=== PATIENT | male | born 1980 | race Caucasian/White ===

== ENCOUNTER 2023-05-23 02:52 | Inpatient (IN) | payer MEDICAID ==
[~2023-05-23] VITALS: Ht 180.3 cm; Wt 100.3 kg
[2023-05-23 03:00] VITALS: BP_SYST 169; PULSE 106; RESP 19; TEMP 97.9; O2SAT 95
[2023-05-23] MEDS ORDERED: FUROSEMIDE 40 MG/4 ML VIAL IVP ONE (03:15)
[2023-05-23 03:29] LABS: BASOPHILS # (AUTO) 0.1 K/uL (0.0-0.2); BASOPHILS % (AUTO) 0.7 % (0.0-2.0); EOSINOPHILS # (AUTO) 0.2 K/uL (0.0-0.4); HEMATOCRIT 36.4 % (36-54); LYMPHOCYTES % (AUTO) 26.6 % (20.5-51.5); MEAN CORPUSCULAR HEMOGLOBIN 23 pg (27-31); MEAN CORPUSCULAR HGB CONC 30 % (32-36); MEAN CORPUSCULAR VOLUME 75 fL (79.0-98.0); MONOCYTES # (AUTO) 0.7 K/uL (0.0-1.0); MONOCYTES % (AUTO) 5.8 % (1.7-9.3); NEUTROPHILS # (AUTO) 7.3 K/uL (1.8-7.7); NEUTROPHILS % (AUTO) 64.9 % (40.0-70.0); PLATELET COUNT (AUTO) 321 K/uL (130-430); RED BLOOD CELL COUNT(AUTO) 4.87 MIL/uL (4.2-6.2); RED CELL DISTRIBUTION WIDTH 17.7 % (9.0-15.0); WHITE BLOOD COUNT (AUTO) 11.3 K/uL (4.8-10.8)
[2023-05-23 03:56] LABS: ALANINE AMINOTRANSFERASE 28 U/L (12-78); ALBUMIN 3.6 g/dL (3.4-4.8); ANION GAP 9 (5-15); ASPARTATE AMINOTRANSFERASE 25 U/L (10-37); CALCIUM 8.6 mg/dL (8.4-11.0); CARBON DIOXIDE 26 mmol/L (23-29); CHLORIDE 104 mmol/L (98-107); CREATININE 1.17 mg/dL (0.55-1.30); GFR AFRICAN AMERICAN 88 mL/min (>90); GLUCOSE 165 mg/dL (74-106); POTASSIUM 3.6 mmol/L (3.5-5.1); SODIUM SERUM 139 mmol/L (136-145); TOTAL BILIRUBIN 0.9 mg/dL (0.0-1.0); TOTAL PROTEIN, SERUM 7.5 g/dL (6.4-8.3); UREA NITROGEN, BLOOD 17 mg/dL (8-21)
[2023-05-23 03:58] LABS: BILIRUBIN,DIRECT 0.3 mg/dL (0.0-0.3)
[2023-05-23 04:02] LABS: GFR NON AFRICAN-AMERICAN 73 mL/min (>90)
[2023-05-23 04:23] LABS: INFLUENZA TYPE A Negative (NEGATIVE); INFLUENZA TYPE B NEGATIVE (NEGATIVE)
[2023-05-23 04:43] LABS: BARBITURATE, URINE NEGATIVE (NEG <=200); BENZODIAZEPINE, URINE NEGATIVE (NEG <=150); CANNABINOID, URINE NEGATIVE (NEG <=50); COCAINE, URINE NEGATIVE (NEG <=150); METHAMPHETAMINES SCREEN,URINE POSITIVE (NEG <=500); OPIATE, URINE NEGATIVE (NEG <=100); PHENCYCLIDINE SCREEN,URINE NEGATIVE (NEG <=25); UR TRICYCLIC ANTIDEPRESSANTS NEGATIVE (NEG <=300); URINE AMPHETAMINE POSITIVE (NEG <=500); URINE METHADONE NEGATIVE (NEG <=200); URINE OXYCODONE SCREEN NEGATIVE (NEG <=100)
[2023-05-23] MEDS ORDERED: iohexoL 350 mgI/mL, 100 ML INFUS..BTL IV ONE (05:28)
[2023-05-23] MEDS ORDERED: hydrALAZINE HCL 20 MG/ML VIAL IVP ONE (05:30)
[2023-05-23 09:37] VITALS: BP_SYST 173; PULSE 96; RESP 20; TEMP 97.7
[2023-05-23] MEDS ORDERED: LORazepam 2 MG/ML VIAL IVP ONE (10:30)
[2023-05-23 14:00] VITALS: BP_SYST 132; PULSE 99; RESP 20; TEMP 97.7; O2SAT 94
[2023-05-23 15:56] VITALS: BP_SYST 171; PULSE 93; RESP 16; TEMP 98.5; O2SAT 95
[2023-05-23] MEDS ORDERED: hydrALAZINE HCL 20 MG/ML VIAL IVP PRN (16:00)
[2023-05-23] MEDS: FUROSEMIDE 40 MG/4 ML VIAL IVP SCH (17:28)
[2023-05-23] MEDS: LISINOPRIL 10 MG TABLET (PRINIVIL) PO SCH (20:19)
[2023-05-23] MEDS ORDERED: HYDROcodone/ACETAMIN 5-325 MG TAB (NORCO/ VICODIN) PO PRN (21:30)
[2023-05-23] MEDS ORDERED: HYDROcodone/ACETAMIN 10-325 MG TAB PO PRN (21:30)
[2023-05-23] MEDS ORDERED: ACETAMINOPHEN 325 MG TABLET PO PRN (21:30)
[2023-05-24 00:21] VITALS: BP_SYST 146; PULSE 99; RESP 19; TEMP 98.6; O2SAT 94
[2023-05-24] MEDS: FUROSEMIDE 40 MG/4 ML VIAL IVP SCH ×2 (08:00→19:06)
[2023-05-24] MEDS: LISINOPRIL 10 MG TABLET (PRINIVIL) PO SCH ×3 (09:00→20:46)
[2023-05-24 09:47] LABS: FREE T4 (FREE THYROXINE) 1.3 ng/dL (0.6-1.6); THYROID STIMULATING HORMONE 1.7 uIu/mL (0.34-4.82)
[2023-05-24] MEDS ORDERED: LORazepam 2 MG/ML VIAL IVP PRN (12:45)
[2023-05-24] MEDS ORDERED: ONDANSETRON HCL 4 MG/2 ML VIAL IVP PRN (12:45)
[2023-05-24 12:56] LABS: CALCIUM 8.9 mg/dL (8.4-11.0); CREATININE 0.92 mg/dL (0.55-1.30); POTASSIUM 3.8 mmol/L (3.5-5.1)
[2023-05-24 12:58] LABS: BASOPHILS # (AUTO) 0.1 K/uL (0.0-0.2); BASOPHILS % (AUTO) 0.7 % (0.0-2.0); EOSINOPHILS # (AUTO) 0.3 K/uL (0.0-0.4); EOSINOPHILS % (AUTO) 2.4 % (0.0-4.0); HEMATOCRIT 38.4 % (36-54); HEMOGLOBIN 11.8 g/dL (14.0-18.0); LYMPHOCYTES # (AUTO) 1.9 K/uL (1.0-5.5); LYMPHOCYTES % (AUTO) 15.4 % (20.5-51.5); MEAN CORPUSCULAR HEMOGLOBIN 23 pg (27-31); MEAN CORPUSCULAR HGB CONC 31 % (32-36); MEAN CORPUSCULAR VOLUME 75 fL (79.0-98.0); MONOCYTES # (AUTO) 0.8 K/uL (0.0-1.0); MONOCYTES % (AUTO) 6.7 % (1.7-9.3); NEUTROPHILS # (AUTO) 9.3 K/uL (1.8-7.7); NEUTROPHILS % (AUTO) 74.8 % (40.0-70.0); PLATELET COUNT (AUTO) 416 K/uL (130-430); RED BLOOD CELL COUNT(AUTO) 5.14 MIL/uL (4.2-6.2); RED CELL DISTRIBUTION WIDTH 17.6 % (9.0-15.0); WHITE BLOOD COUNT (AUTO) 12.5 K/uL (4.8-10.8)
[2023-05-24] MEDS ORDERED: HYDROcodone/ACETAMIN 5-325 MG TAB (NORCO/ VICODIN) PO PRN (13:00)
[2023-05-24] MEDS: NORMAL SALINE 5 ML DISP.SYRIN IVF SCH ×2 (19:06→20:48)
[2023-05-24 20:00] VITALS: BP_SYST 137; PULSE 102; RESP 18; TEMP 97.8; O2SAT 93
[2023-05-24] MEDS: CARVEDILOL 6.25 MG TABLET (COREG) PO SCH (20:47)
[2023-05-25] VITALS: BP_SYST 132; PULSE 105; RESP 17; TEMP 98; O2SAT 95
[2023-05-25] MEDS: NORMAL SALINE 5 ML DISP.SYRIN IVF SCH (06:12)
[2023-05-25 08:00] VITALS: BP_SYST 135; PULSE 95; RESP 22; TEMP 98; O2SAT 96
[2023-05-25] MEDS: CARVEDILOL 6.25 MG TABLET (COREG) PO SCH (09:11)
[2023-05-25] MEDS: LISINOPRIL 10 MG TABLET (PRINIVIL) PO SCH (09:11)
[2023-05-25] MEDS ORDERED: FUROSEMIDE 40 MG TABLET PO ONE (10:30)
[2023-05-25 11:25] VITALS: BP_SYST 136; PULSE 84; RESP 21; TEMP 98.1; O2SAT 96
[2023-05-25] MEDS ORDERED: FUROSEMIDE 40 MG TABLET PO SCH (18:00)
== END 2023-05-25 14:45 | disposition left against medical advice (07) | DRG 194 ==
LOC: SED 02:52 → STU 05:27
PROVIDERS: ADMIT Preventive Medicine Preventive Medicine/Occupational Environmental Medicine; ATTEND Preventive Medicine Preventive Medicine/Occupational Environmental Medicine
DX: I11.0 Hypertensive heart disease with heart failure (principal); R65.10 Systemic inflammatory response syndrome (SIRS) of non-infectious origin without acute organ dysfunction; I42.7 Cardiomyopathy due to drug and external agent; I50.23 Acute on chronic systolic (congestive) heart failure; F15.10 Other stimulant abuse, uncomplicated; Z20.822 Contact with and (suspected) exposure to COVID-19; R73.9 Hyperglycemia, unspecified; E66.01 Morbid (severe) obesity due to excess calories; Z72.0 Tobacco use; Z68.30 Body mass index [BMI] 30.0-30.9, adult
CPT/HCPCS: 36415; 71045; 71275; 76376; 80048; 80061; 80076; 80307; 83037; 83880; 84439; 84443; 84484; 85025; 85379; 93005; 93306; 93971; 96374; 96375; 99291; G0378; J0360; J1940; J2060; Q9967

== ENCOUNTER 2023-06-16 00:23 | Emergency (ER) | payer MEDICAID ==
[~2023-06-16] VITALS: Ht 180.3 cm; Wt 127.0 kg
[2023-06-16 00:36] VITALS: BP_SYST 153; PULSE 102; RESP 20; TEMP 98.3; O2SAT 97
[2023-06-16] MEDS ORDERED: FURO-149 PO (01:56)
== END 2023-06-16 02:15 | disposition home or self-care (01) ==
LOC: SED 00:23
DX: R60.0 Localized edema (principal); R06.02 Shortness of breath; F15.20 Other stimulant dependence, uncomplicated; I11.0 Hypertensive heart disease with heart failure; I50.9 Heart failure, unspecified; Z79.899 Other long term (current) drug therapy
CPT/HCPCS: 71045; 99283